=== PATIENT | male | born 1990 | race Caucasian/White ===

== ENCOUNTER 2016-03-03 09:33 | Emergency (ER) | payer OTHER ==
[~2016-03-03] VITALS: Ht 170.2 cm; Wt 67.5 kg
[~2016-03-03 09:33] MED LIST: ACET1TAB40 PO; IBUP-1542 PO
[2016-03-03 10:01] VITALS: Ht 170.2 cm; Wt 67.5 kg
--- NOTE | 2016-03-03 11:50 | ERD ---
ER Documentation Chief Complaint Date/Time DATE: 03/03/16 TIME: 11:47 Chief Complaint GREENISH DISCHARGES FRFOM GENITAL AREAS X 7 DAYS HPI Patient is a 25-year-old male who is complaining of malodorous purulent discharge from his penis for approximately one week. He does admit to recent unprotected sex with multiple partners. He denies fever. Denies nausea vomiting diarrhea. Denies any pain. ROS All systems reviewed and are negative except as per history of present illness. Medications Home Meds Active Scripts Ibuprofen* (Motrin*) 600 Mg Tab, 600 MG PO Q6H Y for PAIN, #16 TAB Prov:MICHAEL DAVID MD 07/07/15 Acetaminophen-Codeine* (Acetaminophen-Cod #3*) 300-30 Mg Tab, 1 TAB PO Q4H Y for PAIN, #10 TAB Prov:MICHAEL DAVID MD 07/07/15 Allergies Allergies: Coded Allergies: No Known Allergy (Unverified , 03/03/16) PMhx/Soc Medical and Surgical Hx: pt denies Medical Hx, pt denies Surgical Hx Hx Alcohol Use: Yes (denies) Hx Substance Use: No (denies) Hx Tobacco Use: Yes (denies) Smoking Status: Unknown if ever smoked FmHx Family History: No diabetes Physical Exam Vitals Vital Signs Date Time Temp Pulse Resp B/P Pulse Ox O2 Delivery O2 Flow Rate FiO2 03/03/16 10:01 98.4 112 19 155/85 98 Physical Exam General: well developed, well nourished, alert, nontoxic, no distress Head: normocephalic, atraumatic Neck: Supple, nontender, no lymphadenopathy, no midline tenderness Respiratory: Clear to auscaultation bilaterally, speaks in full sentences, no use of accesory muscles or labored breathing, no rales, ronchi, or wheezing Cardiovascular: RRR, No murmurs GI: soft, non tender, non distended, negative murphys sign, negative mcburneys point tenderness, no cva tenderness bilaterally, no rebound or guarding : No inguinal lymphadenopathy, bilateral testicles nontender,purulent drainages noted from the glans of the penis Results 24 hrs Current Medications Medications (Trade) Dose Ordered Sig/Rema Route PRN Reason Start Time Stop Time Status Last Admin Dose Admin Azithromycin (Zithromax) 1,000 mg ONCE ONCE PO 03/03/16 12:00 03/03/16 12:01 03/03/16 11:44 Ceftriaxone Sodium (Rocephin) 250 mg ONCE ONCE IM 03/03/16 12:00 03/03/16 12:01 03/03/16 11:44 Procedures/MDM 25-year-old male presents for urethritis. He was given ceftriaxone and azithromycin here in the emergency room. His urine was sent for gonorrhea chlamydia test. He was told to refrain from sexual contact until his infection clears up.Recommended this patient follow up with her primary care doctor within 48 hours or return to the emergency room for any worsening of symptoms. However this time I do believe there is suitable for outpatient management. I answered all their questions and they agreed with the plan and were discharged home. Departure Diagnosis: Primary Impression: Urethritis Condition: Stable MACEY CANALES PA-C Mar 03, 2016 11:50
[2016-03-03] MEDS ORDERED: AZITHROMYCIN 250 MG TAB PO ONE (12:00)
[2016-03-03] MEDS ORDERED: CEFTRIAXONE 250 MG INJ IM ONE (12:00)
[2016-03-03 12:04] VITALS: TEMP 98
== END 2016-03-03 12:05 | disposition home or self-care (01) ==
LOC: FTE 09:33
DX: N34.2 Other urethritis (principal)
CPT/HCPCS: 87591; 96372; J0696; Z7502; Z7610